=== PATIENT | female | born 1970 | race Caucasian/White ===

== ENCOUNTER 2016-08-16 19:42 | Emergency (ER) | payer OTHER ==
[2016-08-16 20:13] LABS: BASO % 0.3 % (0-6); EOS % 0.7 % (0-6); GRAN % 48.2 % (47-80); HEMATOCRIT 42.6 % (35.0-47.0); HEMOGLOBIN 14.9 gm/dl (11.6-16.0); LYMPH % 42.3 % (16-45); MEAN CELL VOLUME 95.9 fl (81-97); MEAN CORPUSCULAR HEMOGLOBIN 33.6 pg (27-33); MEAN PLATELET VOLUME 9.1 fl (7.4-10.4); MONO % 8.5 % (0-9); PLATELET COUNT 250 K/uL (130-400); RED BLOOD COUNT 4.44 M/uL (3.80-5.40); WHITE BLOOD COUNT W/O DIFF 6.7 K/uL (4.2-12.2)
[2016-08-16] MEDS ORDERED: ASPIRIN 325 MG TABLET PO ONE (20:19)
--- NOTE | 2016-08-16 20:20 | Emergency Department Record ---
History of Present Illness - General Chief Complaint: Chest Pain Stated Complaint: CHEST PAIN Time Seen by Provider: 08/16/16 20:11 Source: Patient Mode of Arrival: Wheelchair - History of Present Illness Initial Comments: The patient states that for the past 1 and a half weeks she has been getting symptoms of anxiety 3-4 times a day and has attributed it to work stress. All day today at work she has been short of breath like she has been all week. Tonight she began having left arm numbness and tingling above the elbow and left sided chest pressure which radiated into her left posterior chest. These symptoms have now resolved since she arrived here. She denies f,c,n,v,d,st, cough other than her chronic smoker's cough, calf tenderness, recent travel. She is a smoker, but denies PE, DVT, CVA, DM, htn, chol elevation, or FH of heart problems at an early age. Dad had heart problems in his late 60's. MD Complaint: Chest pain Onset/Timin -: Hour(s) Onset: During rest Pain Location: Left chest Pain Radiation: None Severity: Mild Quality: Other Consistency: Now resolved Improves With: Nothing Worsens With: Nothing Context: Other Anginal Symptoms: Other Other Symptoms: Syncope Treatments Prior to Arrival: None - Related Data Allergies Allergy/AdvReac Type Severity Reaction Status Date / Time No Known Drug Allergies Allergy Verified 08/16/16 19:55 Travel Screening - Travel/Exposure Within Last 30 Days Have you traveled within the last 30 days?: No - Travel/Exposure Within Last Year Have you traveled outside the [place] in the last year?: No - Additonal Travel Details Have you been exposed to anyone with a communicable illness?: No - Travel Symptoms Symptom Screening: None Review of Systems Reviewed: No additional complaints except as noted below Constitutional: Reports: As per HPI. Denies: Chills, Fever, Malaise, Night sweats, Weakness, Weight change Eyes: Reports: As per HPI. Denies: Eye discharge, Eye pain, Photophobia, Vision change ENT: Reports: As per HPI. Denies: Congestion, Dental pain, Ear pain, Epistaxis , Hearing loss, Throat pain Respiratory: Reports: As per HPI. Denies: Cough, Dyspnea, Hemoptysis, Stridor, Wheezes Cardiovascular: Reports: As per HPI. Denies: Arrhythmia, Chest pain, Dyspnea on exertion, Edema, Murmurs, Orthopnea, Palpitations, Paroxysmal nocturnal dyspnea, Rheumatic Fever, Syncope Endocrine: Reports: As per HPI. Denies: Fatigue, Heat or cold intolerance, Polydipsia, Polyuria Gastrointestinal: Reports: As per HPI. Denies: Abdominal pain, Constipation, Diarrhea, Hematemesis, Hematochezia, Melena, Nausea, Vomiting Genitourinary: Reports: As per HPI. Denies: Abnormal menses, Discharge, Dyspareunia, Dysuria, Frequency, Hematuria, Incontinence, Retention, Urgency Musculoskeletal: Reports: As per HPI. Denies: Arthralgia, Back pain, Gout, Joint swelling, Myalgia, Neck pain Skin: Reports: As per HPI. Denies: Bruising, Change in color, Change in hair/ nails, Lesions, Pruritus, Rash Neurological: Reports: As per HPI. Denies: Abnormal gait, Confusion, Headache, Numbness, Paresthesias, Seizure, Tingling, Tremors, Vertigo, Weakness Psychiatric: Reports: As per HPI. Denies: Anxiety, Auditory hallucinations, Depression, Homicidal thoughts, Suicidal thoughts, Visual hallucinations Hematological/Lymphatic: Reports: As per HPI. Denies: Anemia, Blood Clots, Easy bleeding, Easy bruising, Swollen glands Past Medical History - SOCIAL HISTORY Smoking Status: Current every day smoker Alcohol Use Comment: moderate Drug Use: None - RESPIRATORY Hx Respiratory Disorders: No - CARDIOVASCULAR Hx Cardio Disorders: No - NEURO Hx Neuro Disorders: No - GI Hx GI Disorders: No - Hx Genitourinary Disorders: No - ENDOCRINE Hx Endocrine Disorders: No - MUSCULOSKELETAL Hx Musculoskeletal Disorders: No - PSYCH Hx Psych Problems: No - HEMATOLOGY/ONCOLOGY Hx Hematology/Oncology Disorders: No Family Medical History Any Significant Family History?: No Family Hx Comment (NOT TO BE USED IN PLACE OF ITEMS BELOW): polycystic kidneys Physical Exam - General General Appearance: Alert, Oriented x3, Cooperative, Mild distress, Anxious - Head Head exam: Normal inspection - Eye Eye exam: Normal appearance, PERRL Pupils: Normal accommodation - ENT ENT exam: Normal exam, Mucous membranes moist, Normal external ear exam, Normal orophraynx, TM's normal bilaterally Ear exam: Normal external inspection. negative: External canal tenderness Nasal Exam: Normal inspection. negative: Discharge, Sinus tenderness Mouth exam: Normal external inspection, Tongue normal Teeth exam: Normal inspection. negative: Dental caries Throat exam: Normal inspection. negative: Tonsillar erythema, Tonsillar exudate - Neck Neck exam: Normal inspection, Full ROM. negative: Tenderness - Respiratory Respiratory exam: Normal lung sounds bilaterally. negative: Respiratory distress - Cardiovascular Cardiovascular Exam: Regular rate, Normal rhythm, Normal heart sounds - GI/Abdominal GI/Abdominal exam: Soft, Normal bowel sounds. negative: Tenderness - Rectal Rectal exam: Deferred - exam: Deferred - Extremities Extremities exam: Normal inspection, Full ROM, Normal capillary refill. negative: Calf tenderness, Pedal edema, Tenderness - Back Back exam: Reports: Normal inspection, Full ROM. Denies: Muscle spasm, Rash noted, Tenderness - Neurological Neurological exam: Alert, Normal gait, Oriented X3, Reflexes normal - Psychiatric Psychiatric exam: Normal affect, Normal mood - Skin Skin exam: Dry, Intact, Normal color, Warm. negative: Vesicles Course Vital Signs 08/16/16 19:45 Temperature 97.5 F L Pulse Rate 94 H Respiratory 20 Rate Blood Pressure 157/111 Pulse Ox 98 - Reevaluation(s) Reevaluation #1: Patient is feeling much better now with no symptoms in her chest or arm. 08/16/16 21:58 Reevaluation #2: Reviewed all test results with patient. She understands and agrees with 4 hour repeat cardiac enzymes. 08/16/16 23:40 Reevaluation #3: Repeat 4 hour CKMB and troponin are not rising. Patient is to be discharged home and follow up with PCP as out patient for elective stress test and recheck. 08/17/16 00:58 Medical Decision Making - Management Options MDM Management: Additional Work-up Planned (e.g. ADM/Transfer/OP Study) (PCP follow p for out patient stress test.) - Data Complexity MDM Data: Labs Ordered and/or Reviewed, X-Ray Ordered and/or Reviewed (CXR two view: Neg per radiologist.), EKG Ordered and/or Reviewed - Lab Data Result diagrams: 08/16/16 20:00 08/16/16 20:00 - EKG Data -: EKG Interpreted by Me EKG: No Acute Changes Disposition Disposition: Discharge Clinical Impression: Anxiety attack Disposition: Home, Self-Care Condition: (1) Good Instructions: Anxiety (ED), Generalized Anxiety Disorder (ED) Additional Instructions: Home. Regular rest, balanced meals, relaxation techniques, regular exercise. Follow up with PCP for out patient stress test. Forms: Patient Portal Access
[2016-08-16 20:27] LABS: ALB/GLOB RATIO 1.6 (1.1-1.8); ALBUMIN 4.9 gm/dL (3.5-5.0); ALKALINE PHOSPHATASE 70 U/L (38-126); ALT/SGPT 43 U/L (9-52); ANION GAP 13.9 (7-16); AST/SGOT 29 U/L (14-36); BILIRUBIN,TOTAL 0.74 mg/dL (0.2-1.3); BLOOD UREA NITROGEN 10 mg/dL (7-17); CARBON DIOXIDE 25.1 mmol/L (22-30); CREATININE 0.8 mg/dL (0.52-1.04); EST GLOMERULAR FILTRATION RATE > 60 ml/min; GLUCOSE,RANDOM 128 mg/dL (70-110)
[2016-08-16 20:35] LABS: CKMB 0.4 ug/L (0-6)
[2016-08-16 20:47] LABS: TROPONIN I < 0.012 ng/mL (0.00-0.034)
[2016-08-17 00:55] LABS: CKMB 0.4 ug/L (0-6); TROPONIN I < 0.012 ng/mL (0.00-0.034)
== END 2016-08-17 01:12 | disposition home or self-care (01) ==
LOC: ER 19:42
DX: F41.0 Panic disorder [episodic paroxysmal anxiety] (principal); R07.9 Chest pain, unspecified; R06.02 Shortness of breath
CPT/HCPCS: 71020; 80053; 82553; 84484; 85025; 85379; 93005; 93010; 99284